=== PATIENT | male | born 1950 | race Caucasian/White ===

== ENCOUNTER → 2019-11-18 | Emergency (ER) | payer MEDICARE, OTHER ==
[~2019-11-18] VITALS: Ht 172.7 cm; Wt 82.1 kg
[~2019-11-18] MED LIST: SODIUM CHLORIDE 0.9% 500 ML IV ONE
[2019-11-18 17:36] LABS: Basophils # (auto) 0.1 10 ^3/uL (0-0.2); Eosinophils # (auto) 0.1 10 ^3/uL (0-0.8); Hematocrit 45.3 % (41.0-53.0); Hemoglobin 14.6 g/dL (13.5-17.5); Monocytes # (auto) 0.4 10 ^3/uL (0-1.3)
[2019-11-18 17:38] LABS: Basophils % (auto) 1.3 % (0.0-2.0); Lymphocytes # (auto) 1.5 10 ^3/uL (0.4-5.4); Lymphocytes % (auto) 15.8 % (10.0-50.0); Mean Corpuscular Hemoglobin 24.9 pg (28.0-32.0); Mean Corpuscular Hgb Conc. 32.2 g/dL (32.0-36.0); Mean Corpuscular Volume 77.4 fL (80.0-100.0); Monocytes % (auto) 4.4 % (0.0-12.0); Neutrophils # (auto) 7.2 10 ^3/uL (1.6-8.6); Neutrophils % (auto) 77.5 % (37.0-80.0); Nucleated Red Blood Cells % 0.1 %; Platelet Count (auto) 201 10^3/uL (140-450); Red Blood Cells 5.85 10^6/uL (4.5-5.90); Red Cell Distribution Width 16.2 % (11.8-14.3); White Blood Cell 9.2 10^3/uL (4.4-10.8)
[2019-11-18 17:53] LABS: Albumin 3.4 g/dL (3.4-5.0); Anion Gap 4 (5-15); Blood Urea Nitrogen 26 mg/dL (7-18); Calcium 9.4 mg/dL (8.5-10.1); Carbon Dioxide 27 mmol/L (21-32); Chloride 110 mmol/L (98-107); Glucose 136 mg/dL (74-106); Potassium 4.2 mmol/L (3.5-5.1); Sodium 141 mmol/L (136-145)
[2019-11-18 17:59] LABS: Alanine Aminotransferase 23 U/L (16-61); Alkaline Phosphatase 68 U/L (45-117); Aspartate Aminotransferase 15 U/L (15-37); BUN/Creatinine Ratio 18.7; Bilirubin, Total 0.9 mg/dL (0.2-1.0); GFR African American 65 mL/min; GFR Non-African American 54 mL/min; Total Protein 6.1 g/dL (6.4-8.2)
[2019-11-18 18:52] VITALS: BP 125/62
== END | disposition home or self-care (01) ==
LOC: EDBD 16:42 → ER 16:42
DX: R55 Syncope and collapse (principal); R42 Dizziness and giddiness; R06.02 Shortness of breath
CPT/HCPCS: 36415; 71045; 80053; 82962; 84484; 85025; 93005; 96360; 99285; J7040